=== PATIENT | male | born 1940 | race Caucasian/White ===

== ENCOUNTER 2017-04-29 07:46 | Outpatient (CLI) | payer MEDICARE, OTHER ==
--- NOTE | 2017-04-29 11:20 | Ultrasound Report ---
AORTA SCREEN: 04/29/2017 CLINICAL INDICATION: Screening, tobacco user. TECHNIQUE: Real-time sonographic vascular imaging was performed by the perianesthesia manager through the aorta utilizing both color-flow and Doppler spectral analysis. Multiple district sales representative static images were s aved for review. FINDINGS: The abdominal aorta is normal in caliber, measuring 2.6 cm proximally, 2.3 cm in the mid p ortion, and 1.6 cm distally. The iliacs are normal in caliber. No free fluid is present. IMPRESSION: NO EVIDENCE OF ABDOMINAL AORTIC ANEURYSM. JOB #: [id number] EXT JOB #:[id number]
== END 2017-04-29 07:47 | disposition home or self-care (01) ==
LOC: DI 07:46
PROVIDERS: ATTEND Internal Medicine
DX: Z13.6 Encounter for screening for cardiovascular disorders (principal); Z72.0 Tobacco use
CPT/HCPCS: 76706

== ENCOUNTER 2018-09-11 06:11 | Emergency (ER) | payer MEDICARE, OTHER ==
--- NOTE | 2018-09-11 06:16 | ED Physician Documentation ---
PD HPI MALE - Stated complaint Stated Complaint: MALE - History obtained from History obtained from: Patient - History of Present Illness Timing - onset: Yesterday Timing - details: Abrupt onset, Intermittant Pain level max: 6 Pain level now: 0 Associated symptoms: Back pain. No: Dysuria, Urinary frequency Similar symptoms before: Diagnosis (similar to previous renal colic) Recently seen: Not recently seen - Additional information Additional information: had right flank pain yesterday morning without apparent inciting event. Patient perceived that the pain was reminiscent of his previous renal colic, which he last had approximately 10 years ago. The pain subsided but returned this morning with nausea (no vomiting). 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 denies: Fever, Chills GI: reports: Nausea, Vomiting. denies: Abdominal Pain (right flank pain but no abdominal pain per se), Abdominal Swelling : denies: Dysuria, Frequency, Hematuria Skin: denies: Rash Musculoskeletal: reports: Back pain PD PAST MEDICAL HISTORY - Past Medical History Past Medical History: Yes : Kidney stones - Past Surgical History Past Surgical History: Yes General: Hiatal hernia repair - Living Situation Living Arrangement: reports: At home PD ED PE NORMAL - Vitals Vital signs reviewed: Yes - General General: Alert and oriented X 3, No acute distress, Well developed/nourished - Cardiac Cardiac: RRR, No murmur - Respiratory Respiratory: No respiratory distress, Clear bilaterally - Abdomen Abdomen: Soft, Non tender, Non distended - Back Back: No CVA TTP Results - Vitals Vitals: Vital Signs - 24 hr 09/11/18 09/11/18 06:17 06:26 Temperature 36.5 C Heart Rate 60 97 Respiratory 16 18 Rate Blood Pressure 169/87 H 169/87 H O2 Saturation 99 97 Oxygen O2 Source Room air - Labs Labs: Laboratory Tests 09/11/18 07:10 Urine Color YELLOW Urine Clarity CLEAR Urine pH 6.0 Ur Specific [place] 1.020 Urine Protein 100 H Urine Glucose (UA) NEGATIVE Urine Ketones NEGATIVE Urine Occult Blood MODERATE H Urine Nitrite NEGATIVE Urine Bilirubin NEGATIVE Urine Urobilinogen 0.2 (NORMAL) Ur Leukocyte Esterase NEGATIVE Urine RBC 0-5 Urine WBC 0-3 Ur Squamous Epith Cells RARE Squamous Urine Bacteria Rare Ur Microscopic Review INDICATED Urine Culture Comments NOT INDICATED - Rads (name of study) CT A/P Radiology: Prelim report reviewed, See rad report PD MEDICAL DECISION MAKING - ED course Complexity details: reviewed results, re-evaluated patient, considered differential, d/w patient Departure - Departure Disposition: 01 Home, Self Care Clinical Impression: Back pain, Flank pain Condition: Good Instructions: ED Flank Pain Uncertain Cause, ED Stone Renal Passed Follow-Up: Jas Menon MD [Primary Care Provider] - Within 1 week
[2018-09-11 06:24] VITALS: BP 169/87
--- NOTE | 2018-09-11 07:18 | CT Report ---
Reason: right flank pain Procedure Date: 09/11/2018 Accession Number: [id number] / [id number] Procedure: CT - Abdomen/Pelvis WO CPT Code: FULL RESULT: EXAM: CT ABDOMEN AND PELVIS (CT KUB) EXAM DATE: 09/11/2018 06:56 AM. CLINICAL HISTORY: Right flank pain. COMPARISONS: None. TECHNIQUE: Routine axial helical CT imaging was performed through the abdomen and pelvis without IV contrast. Reconstructions: Coronal and sagittal. In accordance with CT protocol optimization, one or more of the following dose reduction techniques were utilized for this exam: automated exposure control, adjustment of mA and/or KV based on patient size, or use of iterative reconstructive technique. FINDINGS: Lung Bases: There is mild bronchiectasis and scarring or atelectasis at the base of the left lower lobe. Right Kidney/Ureter: No stones, hydronephrosis, or hydroureter. No perinephric fat stranding. Left Kidney/Ureter: No stones, hydronephrosis, or hydroureter. No perinephric fat stranding. There are 2 exophytic cortical cyst near the superior pole of the left kidney measuring 5.6 x 5.0 cm and 4.1 x 3.9 cm, respectively (series 4, images 59 and 57). Other Solid Organs: Noncontrast images of the solid organs are grossly unremarkable. Gallbladder/Bile Ducts: Unremarkable. Peritoneal Cavity: No free fluid, free air or layne adenopathy. No evidence of bowel obstruction or abnormal colonic stool burden. The appendix is well visualized and normal. There is moderate diverticulosis of the sigmoid colon without evidence of acute diverticulitis. Pelvic Organs: No bladder stones or wall thickening. There is a calcified phlebolith in the right side of the pelvis located inferior to the distal right ureter (series 4 image 138, and series 6 image 69). Noncontrast images of the visualized pelvic organs are unremarkable. Vasculature: There is moderate atherosclerotic calcification of the abdominal aorta and bilateral common iliac arteries. No aneurysm or other significant abnormality. Other: There are small bilateral fat-containing inguinal hernias and a small fat-containing umbilical hernia. No acute osseous abnormality or bone lesion. There are moderate degenerative disk changes of the lumbar spine. There is mild right complex curvature of the lumbar spine. IMPRESSION: 1. No urinary tract stones or obstruction. 2. Moderate diverticulosis of the sigmoid colon without evidence of acute diverticulitis. 3. The appendix is well visualized and normal. RADIA
[2018-09-11 07:21] LABS: BILIRUBIN,URINE NEGATIVE (NEGATIVE); GLUCOSE, URINE (UA) NEGATIVE (NEGATIVE); KETONES,URINE (UA) NEGATIVE (NEGATIVE); LEUKOCYTE ESTERASE, URINE NEGATIVE (NEGATIVE); NITRITE,URINE NEGATIVE (NEGATIVE); OCCULT BLOOD,URINE MODERATE (NEGATIVE); PROTEIN,URINE 100 mg/dL (NEGATIVE); UROBILINOGEN,URINE 0.2 (NORMAL) E.U./dL (NORMAL)
[2018-09-11 07:25] LABS: CLARITY,URINE CLEAR (CLEAR)
[2018-09-11 07:29] LABS: BACTERIA,URINE Rare /HPF (None Seen); RBC,URINE 0-5 /HPF (0-5); SQUAMOUS EPITHELIAL CELL,UR RARE Squamous (<= Few)
== END 2018-09-11 08:16 | disposition home or self-care (01) ==
LOC: ED 06:11
DX: M54.9 Dorsalgia, unspecified (principal); R10.9 Unspecified abdominal pain
CPT/HCPCS: 74176; 81001; 81003; 87086; 99283

== ENCOUNTER 2018-11-20 11:17 | Outpatient (CLI) | payer MEDICARE, OTHER ==
--- NOTE | 2018-11-20 12:45 | XRAY Report ---
Reason: RT KNEE PAIN Procedure Date: 11/20/2018 Accession Number: [id number] / [id number] Procedure: XR - Knee 4 View RT CPT Code: FULL RESULT: EXAM: RIGHT KNEE RADIOGRAPHY EXAM DATE: 11/20/2018 11:26 AM. CLINICAL HISTORY: Right knee pain. COMPARISON: None. TECHNIQUE: 4 views. FINDINGS: Bones: On the external rotated view is a sharply angulated fragment in the region of the lateral tibial, possibly projectional finding. Joints: Mild narrowing of the bilateral weightbearing compartments. No significant osteophytosis. There is a small joint effusion. No subluxation. Soft Tissues: Normal. No soft tissue swelling. IMPRESSION: No osseous injury to the patella is detected. Potential avulsion fracture in the region of the lateral tibial spine, this finding is possibly projectional. RADIA
== END 2018-11-20 11:18 | disposition home or self-care (01) ==
LOC: DI 11:17
PROVIDERS: ATTEND Physician Assistant
DX: M25.561 Pain in right knee (principal)

== ENCOUNTER 2018-12-26 09:10 | Emergency (ER) | payer MEDICARE, OTHER ==
[2018-12-26] MEDS ORDERED: IOVERSOL 320 100 ML VIAL IVP ONE ×3 (09:11→13:53)
--- NOTE | 2018-12-26 09:31 | ED Physician Documentation ---
History of Present Illness - Stated complaint Stated Complaint: SPITTING BLOOD - Chief complaint Chief Complaint: Resp - History obtained from History obtained from: Patient - History of Present Illness Timing: Prior to arrival - Additonal information Additional information: Patient is a 78-year-old male with history of hypertension presenting with sudden onset hemoptysis earlier today. Patient denies hematemesis or hematochezia, as well as difficulty breathing, fever, chest pain, abdominal pain, or other urinary or stool symptoms. Patient is not on any a nticoagulation. Patient does note that he had recent lower leg swelling and pain several weeks ago that have mostly resolved with icing. Patient denies any current swelling or calf pain today. No other improving or worsening factors noted. Review of Systems Constitutional: denies: Fever Cardiac: denies: Chest pain / pressure Respiratory: reports: Cough. denies: Dyspnea GI: denies: Abdominal Pain, Nausea, Vomiting, Constipation : denies: Dysuria PD PAST MEDICAL HISTORY - Past Medical History Past Medical History: Yes Cardiovascular: Hypertension : Kidney stones - Past Surgical History Past Surgical History: Yes General: Hiatal hernia repair - Allergies Allergies/Adverse Reactions: Allergies Allergy/AdvReac Type Severity Reaction Status Date / Time No Known Drug Allergies Allergy Verified 12/26/18 09:20 - Social History Does the pt smoke?: No Smoking Status: Never smoker Does the pt drink ETOH?: Yes Does the pt have substance abuse?: No - Immunizations Immunizations are current?: No Immunizations: TDAP >10years/unknown - POLST Patient has POLST: No PD ED PE NORMAL - Vitals Vital signs reviewed: Yes - General General: Alert and oriented X 3, No acute distress, Well developed/nourished - HEENT HEENT: Atraumatic, Moist mucous membranes, Pharynx benign - Cardiac Cardiac: RRR, No murmur - Respiratory Respiratory: No respiratory distress, Clear bilaterally - Abdomen Abdomen: Soft, Non tender, Non distended - Derm Derm: Normal color, Warm and dry, No rash - Extremities Extremities: No deformity, No tenderness to palpate, No calf tenderness / cord. No: No edema (Trace pedal edema bilaterally) - Neuro Neuro: Alert and oriented X 3, No motor deficit, No sensory deficit - Psych Psych: Normal mood, Normal affect Results - Vitals Vitals: Vital Signs - 24 hr 12/26/18 12/26/18 12/26/18 09:18 09:20 10:02 Temperature 37.1 C 36.7 C Heart Rate 56 L 60 56 L Respiratory 18 17 17 Rate Blood Pressure 176/80 H 175/90 H 167/80 H O2 Saturation 99 99 100 12/26/18 12/26/18 14:00 15:08 Temperature 36.5 C Heart Rate 53 L 55 L Respiratory 21 12 Rate Blood Pressure 175/79 H 168/81 H O2 Saturation 99 99 Oxygen O2 Source Room air - EKG (time done) 0952 Rate: Rate (enter#) (68) Rhythm: Other (Irregular) Intervals: Prolonged QT - Labs Labs: Laboratory Tests 12/26/18 12/26/18 12/26/18 09:47 09:47 09:47 WBC 5.5 RBC 4.17 L Hgb 13.7 L Hct 39.7 L MCV 95.2 H MCH 32.9 H MCHC 34.5 RDW 12.6 Plt Count 269 MPV 9.0 Neut # (Auto) 2.9 Lymph # (Auto) 1.7 [place] # (Auto) 0.6 Eos # (Auto) 0.2 Baso # (Auto) 0.1 Absolute Nucleated RBC 0.00 Nucleated RBC % 0.0 PT 13.4 H INR 1.2 APTT 31.3 Sodium Potassium Chloride Carbon Dioxide Anion Gap BUN Creatinine Estimated GFR (MDRD) Glucose Calcium Total Bilirubin AST ALT Alkaline Phosphatase Troponin I Total Protein Albumin Globulin Albumin/Globulin Ratio Lipase Blood Type A POSITIVE Antibody Screen NEGATIVE 12/26/18 12/26/18 09:47 09:47 WBC RBC Hgb Hct MCV MCH MCHC RDW Plt Count MPV Neut # (Auto) Lymph # (Auto) [place] # (Auto) Eos # (Auto) Baso # (Auto) Absolute Nucleated RBC Nucleated RBC % PT INR APTT Sodium 141 Potassium 3.3 L Chloride 104 Carbon Dioxide 26 Anion Gap 11.0 BUN 17 Creatinine 1.0 Estimated GFR (MDRD) 73 L Glucose 99 Calcium 8.8 Total Bilirubin 1.0 AST 19 ALT 14 Alkaline Phosphatase 77 Troponin I < 0.04 Total Protein 7.1 Albumin 3.6 Globulin 3.5 Albumin/Globulin Ratio 1.0 Lipase 53 H Blood Type Antibody Screen PD MEDICAL DECISION MAKING - ED course Complexity details: reviewed results, re-evaluated patient, considered differential, d/w patient, d/w family, d/w database reporting consultant ED course: Patient presenting with bright red blood hemoptysis and no other associated symptoms.Within normal limits and patient not in risk of acute hemorrhage at this time. Patient started on IV fluids, but did not require other medications. Screening lab work obtained which returned relatively unremarkable including H&H at 13.7 and 39.7. Coags rather unremarkable. EKG does not show evidence of ischemia and troponin within normal limits. Have low suspicion for dissection, aneurysm,ACS, NM, unstable angina, but considered. Chest x-ray did not find evidence of acute pathology.Patient did have further episodes of hemoptysis, although if significantly small amount while in the ED. Do have concern for possible PE or other pulmonary mass or hemorrhage and obtain CT imaging to further evaluate. Do not find evidence of PE, pneumonia, pneumothorax, hemothorax, but noted nodule/mass concerning for neoplasm. Had extensive discussions with patient and family about results and recommendations, which can likely be done as an outpatient given patient's stability and lack of other associated symptoms. Contacted patient's PCP who feels comfortable with patient care for this issue, discharge home and will plan for close follow-up.Advised patient of discussion with PCP and patient and family also comfortable with discharge home with strict precautions and close follow-up. Departure - Departure Disposition: 01 Home, Self Care Clinical Impression: Hemoptysis Condition: Good Instructions: ED Hemoptysis Follow-Up: Jas Menon MD [Primary Care Provider] - Within 3 Days Comments: Please continue all home medications as prescribed. Please do not take any blood thinning medications such as aspirin unless absolutely needed. Please contact Dr. Menon's office later today to schedule outpatient follow-up appointment. Return to the ED sooner if experience more coughing of blood, vomiting blood, pooping blood, lightheaded, dizzy, passing out, chest pain, difficulty breathing, or other concerns.
[2018-12-26 09:59] LABS: BASOPHILS # (AUTO) 0.1 10^3/uL (0.0-0.1); BASOPHILS % (AUTO) 1.5 %; EOSINOPHILS # (AUTO) 0.2 10^3/uL (0.0-0.7); EOSINOPHILS % (AUTO) 2.7 %; HGB - HEMOGLOBIN 13.7 g/dL (14.0-18.0); LYMPHOCYTES # (AUTO) 1.7 10^3/uL (1.5-3.5); LYMPHOCYTES % (AUTO) 31.5 %; MEAN CORPUSCULAR HEMOGLOBIN 32.9 pg (27.0-31.0); MEAN CORPUSCULAR HGB CONC 34.5 g/dL (32.0-36.0); MEAN CORPUSCULAR VOLUME 95.2 fL (80.0-94.0); MONOCYTES # (AUTO) 0.6 10^3/uL (0.0-1.0); MONOCYTES % (AUTO) 11.2 %; NEUTROPHILS # (AUTO) 2.9 10^3/uL (1.5-6.6); NEUTROPHILS % (AUTO) 52.9 %; PLT - PLATELET COUNT 269 10^3/uL (130-450); RED BLOOD COUNT 4.17 10^6/uL (4.70-6.10); RED CELL DISTRIBUTION WIDTH 12.6 % (12.0-15.0); WHITE BLOOD COUNT 5.5 x10^3/uL (4.8-10.8)
[2018-12-26 10:10] LABS: INR 1.2 (0.8-1.2); PT - PROTHROMBIN TIME 13.4 secs (9.9-12.6)
[2018-12-26 10:13] LABS: ALBUMIN 3.6 g/dL (3.2-5.5); CALCIUM 8.8 mg/dL (8.5-10.3); TOTAL PROTEIN 7.1 g/dL (6.7-8.2)
[2018-12-26 10:17] LABS: PARTIAL THROMBOPLASTIN TIME 31.3 secs (24.9-33.3)
--- NOTE | 2018-12-26 10:40 | XRAY Report ---
Reason: cough Procedure Date: 12/26/2018 Accession Number: [id number] / [id number] Procedure: XR - Chest 2 View X-Ray CPT Code: 11216 FULL RESULT: EXAM: CHEST RADIOGRAPHY EXAM DATE: 12/26/2018 10:22 AM. CLINICAL HISTORY: Cough. COMPARISON: None. TECHNIQUE: 2 views. FINDINGS: Lungs/Pleura: The lungs are symmetrically aerated. No infiltrate, pleural effusion or pneumothorax. Mediastinum: Heart and mediastinal contours are unremarkable. Other: Mild degenerative changes in the thoracic spine. Surgical clips beneath hemidiaphragm. IMPRESSION: No acute process. RADIA
--- NOTE | 2018-12-26 13:13 | CT Report ---
Reason: New hemoptysis, no SOB or pain Procedure Date: 12/26/2018 Accession Number: [id number] / [id number] Procedure: CT - ANGIO CHEST W/WO CPT Code: FULL RESULT: EXAM: CT ANGIOGRAM CHEST EXAM DATE: 12/26/2018 11:52 AM. CLINICAL HISTORY: New hemoptysis, no SOB or pain. COMPARISON: None. TECHNIQUE: Routine helical imaging was performed through the chest in the pulmonary arterial phase. IV Contrast: 80 cc Optiray 320. Reconstructions: Sagittal, coronal, and 3D MIP. In accordance with CT protocol optimization, one or more of the following dose reduction techniques were utilized for this exam: automated exposure control, adjustment of mA and/or KV based on patient size, or use of iterative reconstructive technique. FINDINGS: Pulmonary Arteries: Diagnostic quality: Adequate through the segmental arteries. No evidence for acute or chronic pulmonary emboli. RV/LV is within normal limits. There is no interventricular septal bowing. There is trace reflux of contrast material in the IVC. Lungs/Pleura: Scattered peripheral fibrotic changes, right more than left, with bibasilar bronchiectasis, left worse than right. Localized pleural thickening in the right posterior apex with spiculated pleural-based nodular density measuring about 10.5 mm on series 5 image 25. No acute infiltrate, consolidation, effusion, or pneumothorax. Mediastinum: Normal overall heart size. No pericardial effusion. At least one vessel coronary artery calcification. No lymphadenopathy. Thoracic Aorta: Unremarkable. Upper Abdomen: The surgical clips in epigastrium. Left renal cysts. Otherwise unremarkable. Other: None. IMPRESSION: 1. Negative for pulmonary embolism at this time. Unremarkable aorta. 2. Spiculated nodule and right posterior apex, scarring versus neoplasm. Further evaluation with biopsy or PET scan is recommended, per Fleischner Society guidelines. 3. Chronic and incidental findings as noted, including mild bibasilar bronchiectasis. RADIA
[2018-12-26 15:58] VITALS: BP 165/74
== END 2018-12-26 15:57 | disposition home or self-care (01) ==
LOC: ED 09:10
DX: R04.2 Hemoptysis (principal); R91.1 Solitary pulmonary nodule; I45.81 Long QT syndrome; I10 Essential (primary) hypertension
CPT/HCPCS: 36415; 71046; 71275; 80053; 83690; 84484; 85025; 85610; 85730; 86850; 86900; 86901; 93005; 99284; Q9967

== ENCOUNTER 2018-12-27 13:14 | Outpatient (CLI) | payer MEDICARE, OTHER | END 2018-12-27 13:15 | disposition short-term general hospital (02) | LOC: EMS 13:14 | PROVIDERS: ATTEND Surgery | DX: R91.8 Other nonspecific abnormal finding of lung field (principal); R04.2 Hemoptysis | CPT/HCPCS: A0425; A0427 ==

== ENCOUNTER 2019-03-24 18:04 | Outpatient (CLI) | payer MEDICARE, OTHER ==
[2019-03-24 18:47] LABS: BASOPHILS # (AUTO) 0.1 10^3/uL (0.0-0.1); BASOPHILS % (AUTO) 0.8 %; EOSINOPHILS # (AUTO) 0.4 10^3/uL (0.0-0.7); EOSINOPHILS % (AUTO) 3.4 %; HGB - HEMOGLOBIN 13.5 g/dL (14.0-18.0); LYMPHOCYTES # (AUTO) 1.9 10^3/uL (1.5-3.5); LYMPHOCYTES % (AUTO) 15.4 %; MEAN CORPUSCULAR HEMOGLOBIN 33.2 pg (27.0-31.0); MEAN CORPUSCULAR HGB CONC 34.4 g/dL (32.0-36.0); MEAN CORPUSCULAR VOLUME 96.3 fL (80.0-94.0); MEAN PLATELET VOLUME 8.8 fL (7.4-11.4); MONOCYTES # (AUTO) 1.3 10^3/uL (0.0-1.0); MONOCYTES % (AUTO) 10.4 %; NEUTROPHILS # (AUTO) 8.4 10^3/uL (1.5-6.6); NEUTROPHILS % (AUTO) 69.3 %; PLT - PLATELET COUNT 234 10^3/uL (130-450); RED BLOOD COUNT 4.07 10^6/uL (4.70-6.10); RED CELL DISTRIBUTION WIDTH 12.7 % (12.0-15.0); WHITE BLOOD COUNT 12.1 x10^3/uL (4.8-10.8)
--- NOTE | 2019-03-25 10:33 | XRAY Report ---
Reason: SOB, HEMOPTYSIS Procedure Date: 03/24/2019 Accession Number: [id number] / [id number] Procedure: XR - Chest 2 View X-Ray CPT Code: 97742 FULL RESULT: EXAM: CHEST RADIOGRAPHY EXAM DATE: 03/24/2019 07:03 PM. CLINICAL HISTORY: Shortness of breath, hemoptysis. COMPARISON: CHEST 2 VIEW 12/26/2018 10:09 AM CHEST ANGIO 12/26/2018 11:43 AM. TECHNIQUE: 2 views. FINDINGS: Lungs/Pleura: Mild right hemithorax volume loss and right apical capping compatible with partial pneumonectomy. Mildly prominent interstitial markings bilaterally. No acute consolidations or pulmonary edema detected. Mediastinum: Heart and mediastinal contours are unremarkable. Other: None. IMPRESSION: Postsurgical changes on the right. No acute consolidations detected. If symptoms persist, follow-up CT would be suggested for further evaluation. RADIA
== END 2019-03-24 18:05 | disposition home or self-care (01) ==
LOC: LAB 18:04 → DI 18:04
PROVIDERS: ATTEND Physician Assistant
DX: R06.02 Shortness of breath (principal); R04.2 Hemoptysis
CPT/HCPCS: 36415; 71046; 85025; 85379

== ENCOUNTER 2019-07-23 06:51 | Day surgery (SDC) | payer MEDICARE, OTHER ==
[~2019-07-23 06:51] MED LIST: CYCLOPENTOLATE 1% OPHTH DROPS 2 ML ONE; KETOROLAC 0.45% OPHTH DROPS ONE; PHENYLEPHRINE 2.5% OPHTH 2 ML DROPS ONE; PROPARACAINE 0.5% OPHTH DROPS 15 ML ONE
[2019-07-23] MEDS ORDERED: MIDAZOLAM 2 MG/2 ML VIAL IVP ONE (06:52)
[2019-07-23] MEDS ORDERED: TRIAMCIN/MOXIFLOX OPHTHALMIC 0.6 ML VIAL IO ONE (06:55)
[2019-07-23] MEDS ORDERED: BSS/LIDOCAINE/EPINEPHRINE 1 ML SYRINGE ONE (06:55)
[2019-07-23] MEDS ORDERED: TIMOLOL 0.5% OPHTH DROPS ONE (06:55)
[2019-07-23] MEDS ORDERED: BRIMONIDINE 0.2% OPHTH DROPS 5 ML ONE (06:55)
[2019-07-23] MEDS ORDERED: VANCOMYCIN OPHTHALMI 8MG/0.8ML 8 MG/0.8 ML SYRINGE IO ONE (06:55)
[2019-07-23] MEDS ORDERED: LACTATED RINGERS 500 ML IV ONE (06:59)
[2019-07-23] MEDS ORDERED: CYCLOPENTOLATE 1% OPHTH DROPS 2 ML LEFTEYE ONE (07:16)
[2019-07-23] MEDS ORDERED: PROPARACAINE 0.5% OPHTH DROPS 15 ML LEFTEYE ONE ×2 (07:16→08:32)
[2019-07-23] MEDS ORDERED: KETOROLAC 0.45% OPHTH DROPS LEFTEYE ONE (07:16)
[2019-07-23] MEDS ORDERED: PHENYLEPHRINE 2.5% OPHTH 2 ML DROPS LEFTEYE ONE (07:22)
--- NOTE | 2019-07-23 08:01 | ANESTHESIA ---
Pre-Anesthesia VS, & Labs - Diagnosis left senile combined cataract - Procedure left cataract extraction with intraocular lens Vital Signs: Temp Pulse Resp BP Pulse Ox 36.5 C 48 L 15 151/69 H 99 07/23/19 07:08 07/23/19 07:08 07/23/19 07:08 07/23/19 07:08 07/23/19 07:08 Height 5 ft 11 in Weight (kg) 94 kg Body Mass Index 27.8 - NPO >8 hours Home Medications and Allergies Home Medications: Ambulatory Orders Amlodipine Besylate [Norvasc] 07/22/19 Citalopram [CeleXA] 07/22/19 Propranolol [Inderal] 07/22/19 traZODone [Desyrel] 07/22/19 Amlodipine Besylate [Norvasc] 07/22/19 Citalopram [CeleXA] 07/22/19 Propranolol [Inderal] 07/22/19 traZODone [Desyrel] 07/22/19 Allergies/Adverse Reactions: Allergies Allergy/AdvReac Type Severity Reaction Status Date / Time No Known Drug Allergies Allergy Verified 12/26/18 09:20 Anes History & Medical History - Anesthetic History Anesthesia Complications: reports: No previous complications - Medical History Cardiovascular: reports: Hypertension, Atrial fibrillation (history of) Pulmonary: reports: Other (s/p lobectomy right upper) Urinary: reports: Kidney stones Musculoskeletal: reports: None Endocrine/Autoimmune: reports: None Skin: reports: None Smoking Status: Never smoker - Surgical History General: Hiatal hernia repair Exam General: Alert Dental: WNL, Dentures full Upper, Dentures full Lower Mouth Opening: Greater than 4 Fingerbreadths Neck Mobility: Normal Mallampati classification: II Thyromental Distance: greater than 6 cm Respiratory: Lungs clear Cardiovascular: Regular rate, Normal S1, Normal S2 Mental/Cognitive Status: Alert/Oriented X3 Plan Anesthesia Type: MAC Consent for Procedure(s) Verified and Reviewed: Yes Code Status: Attempt Resuscitation ASA classification: 2-Mild systemic disease Is this case an emergency?: No
[2019-07-23] MEDS ORDERED: BRIMONIDINE 0.2% OPHTH DROPS 5 ML OPTH ONE (08:41)
[2019-07-23] MEDS ORDERED: EPINEPHrine 1 MG/ML AMP IVP ONE (08:41)
[2019-07-23] MEDS ORDERED: BSS/LIDOCAINE/EPINEPHRINE 1 ML SYRINGE IO ONE (08:42)
[2019-07-23] MEDS ORDERED: TIMOLOL 0.5% OPHTH DROPS OPTH ONE (08:42)
[2019-07-23] MEDS ORDERED: CHONDR SULF/HYALURONATE SYRINGE IO ONE (08:42)
[2019-07-23 09:25] VITALS: BP 139/69
--- NOTE | 2019-07-23 10:17 | OPERATIVE REPORT ---
DATE OF SERVICE: 07/23/2019 Physician: Indra Laura MD PREOPERATIVE DIAGNOSIS: Visually significant cataract, left eye. This was his first cataract surger y. POSTOPERATIVE DIAGNOSIS: Visually significant cataract, left eye. This was his first cataract surge ry. DESCRIPTION OF PROCEDURE: Phacoemulsification with posterior chamber intraocular lens implant, left eye. SURGEON: Indra Laura MD ANESTHESIA: Monitored anesthesia care. COMPLICATIONS: None. OPERATIVE INDICATIONS: This is a 78-year-old man with progressive vision loss in the left eye due to 2+ nuclear sclerotic, 1+ cortical, and 2+ posterior subcapsular cataract. Best corrected visual acu ity was 20/40, with glare to hand motion vision in the left eye. Indications for surgery are overall decrease in vision, difficulty reading, difficulty seeing words, closed caption or game scores on TV , difficulty driving at night or low light, difficulty driving at night because of headlights from ot her vehicles, difficulty with glare or bright lights in any situation, and decreased acuity with fire arms. He was consented at length concerning risks and benefits of cataract surgery, after which he e xpressed a desire to proceed with surgery. OPERATIVE PROCEDURE: The patient was taken into OR #3 and placed under monitored anesthesia care. A surgical timeout was conducted confirming correct patient, correct procedure, and correct surgical s ite. He was given topical anesthesia, and prepped and draped in the usual sterile fashion. The eye was entered at the 6 and 3 o'clock positions. Intracameral Shugarcaine was injected into the anterio r chamber, followed by Viscoat. A continuous-tear curvilinear capsulorrhexis was performed. The nuc leus was hydrodissected and phacoemulsified. Cortex was evacuated using automated infusion and aspir ation. Provisc was injected in the capsular bag, and a 20.0 diopter intraocular lens inserted in the bag. I and A was used to evacuate the viscoelastic materials. The eye was inflated to physiologic pressure using balanced salt solution and found to be watertight. Approximately 0.25 mL of a mixture of triamcinolone and moxifloxacin was injected transsclerally into the vitreous in the inferotempora l quadrant. An additional 0.55 mL of a mixture of triamcinolone, moxifloxacin and vancomycin was inj ected subconjunctivally in the superior quadrant for infection and inflammation prophylaxis. Wound i ntegrity was checked with Weck-Kiki sponges. The patient was taken from the operating room in good co ndition and given postoperative instructions. TD: 07/23/2019 09:02
== END 2019-07-23 06:52 | disposition home or self-care (01) ==
LOC: SDS 06:51
PROVIDERS: ATTEND Ophthalmology
PROC: 08RK3JZ Replacement of Left Lens with Synthetic Substitute, Percutaneous Approach (ICD-10-PCS; principal; 2019-07-23 08:30)
DX: H25.812 Combined forms of age-related cataract, left eye (principal); I10 Essential (primary) hypertension; Z90.2 Acquired absence of lung [part of]; Z85.118 Personal history of other malignant neoplasm of bronchus and lung; Z87.891 Personal history of nicotine dependence
CPT/HCPCS: 66984; A9270; J3490; V2632

== ENCOUNTER 2019-08-27 07:45 | Day surgery (SDC) | payer MEDICARE, OTHER ==
[~2019-08-27 07:45] MED LIST changes: +BRIMONIDINE 0.2% OPHTH DROPS 5 ML ONE; +BSS/LIDOCAINE/EPINEPHRINE 1 ML SYRINGE ONE; +TRIAMCIN/MOXIFLOX OPHTHALMIC 0.6 ML VIAL IO ONE; +VANCOMYCIN OPHTHALMI 8MG/0.8ML 8 MG/0.8 ML SYRINGE IO ONE; +timoloL maleate 0.5% OPHTH DROPS (10ML) ONE
[2019-08-27] MEDS ORDERED: LACTATED RINGERS 500 ML IV ONE (07:53)
[2019-08-27] MEDS ORDERED: KETOROLAC 0.45% OPHTH DROPS RIGHTEYE ONE (08:17)
[2019-08-27] MEDS ORDERED: CYCLOPENTOLATE 1% OPHTH DROPS 2 ML RIGHTEYE ONE (08:18)
[2019-08-27] MEDS ORDERED: PROPARACAINE 0.5% OPHTH DROPS 15 ML RIGHTEYE ONE ×2 (08:18→09:19)
[2019-08-27] MEDS ORDERED: PHENYLEPHRINE 2.5% OPHTH 2 ML DROPS RIGHTEYE ONE (08:18)
--- NOTE | 2019-08-27 08:25 | ANESTHESIA ---
Pre-Anesthesia VS, & Labs - Diagnosis Right senile combined cataract - Procedure Right phaco with IOL implant Vital Signs: Temp Pulse Resp BP Pulse Ox 36.8 C 57 L 15 126/64 99 08/27/19 08:01 08/27/19 08:01 08/27/19 08:01 08/27/19 08:01 08/27/19 08:01 Height 5 ft 11 in Weight (kg) 92 kg Body Mass Index 27.8 - NPO >8 hours Home Medications and Allergies Amlodipine Besylate [Norvasc] 5 mg PO DAILY 07/22/19 Citalopram [CeleXA] 40 mg PO DAILY 07/22/19 Propranolol [Inderal] 40 mg PO DAILY 07/22/19 traZODone [Desyrel] 25 mg PO DAILY 07/22/19 Allergies/Adverse Reactions: Allergies Allergy/AdvReac Type Severity Reaction Status Date / Time No Known Drug Allergies Allergy Verified 12/26/18 09:20 Anes History & Medical History - Anesthetic History Anesthesia Complications: reports: No previous complications Family history of Anesthesia Complications: Denies Family history of Malignant Hyperthermia: Denies - Medical History Cardiovascular: reports: Hypertension, Atrial fibrillation Pulmonary: reports: Other Gastrointestinal: reports: Hiatal hernia Urinary: reports: Kidney stones Neuro: reports: None Musculoskeletal: reports: None Endocrine/Autoimmune: reports: None Blood Disorders: reports: None Skin: reports: None Smoking Status: Former smoker Psychosocial: reports: No issues indicated - Surgical History General: Hiatal hernia repair Eyes Ears Nose Throat (EENT): Cataracts Exam General: Alert Dental: Dentures full Upper, Dentures full Lower Mouth Opening: Greater than 4 Fingerbreadths Neck Mobility: Normal Mallampati classification: I Thyromental Distance: greater than 6 cm Plan Anesthesia Type: MAC Consent for Procedure(s) Verified and Reviewed: Yes Code Status: Attempt Resuscitation ASA classification: 3-Severe systemic disease Is this case an emergency?: No
[2019-08-27] MEDS ORDERED: LIDOCAINE-MPF 2% 5 ML VIAL IM ONE (09:13)
[2019-08-27] MEDS ORDERED: PROPOFOL 200 MG/20 ML VIAL IVP ONE (09:13)
[2019-08-27] MEDS ORDERED: MIDAZOLAM 2 MG/2 ML VIAL IVP ONE (09:13)
[2019-08-27] MEDS ORDERED: BRIMONIDINE 0.2% OPHTH DROPS 5 ML OPTH ONE (09:20)
[2019-08-27] MEDS ORDERED: EPINEPHrine 1 MG/ML AMP IVP ONE (09:20)
[2019-08-27] MEDS ORDERED: CHONDR SULF/HYALURONATE SYRINGE IO ONE (09:20)
[2019-08-27] MEDS ORDERED: TIMOLOL 0.5% OPHTH DROPS OPTH ONE (09:20)
[2019-08-27] MEDS ORDERED: BSS/LIDOCAINE/EPINEPHRINE 1 ML SYRINGE IO ONE (09:20)
[2019-08-27] MEDS ORDERED: TRIAMCIN/MOXIFLOX OPHTHALMIC 0.6 ML VIAL IO ONE (09:37)
[2019-08-27] MEDS ORDERED: VANCOMYCIN OPHTHALMI 8MG/0.8ML 8 MG/0.8 ML SYRINGE IO ONE (09:38)
--- NOTE | 2019-08-27 09:52 | OPERATIVE REPORT ---
DATE OF SERVICE: 08/27/2019 Physician: Indra Laura MD PREOPERATIVE DIAGNOSIS: Visually significant cataract, right eye. Cataract surgery was performed on the left eye on 07/03/2019. POSTOPERATIVE DIAGNOSIS: Visually significant cataract, right eye. Cataract surgery was performed o n the left eye on 07/03/2019. PROCEDURE: Phacoemulsification with posterior chamber intraocular lens implant, right eye. SURGEON: Indra Laura MD ANESTHESIA: Monitored anesthesia care. COMPLICATIONS: None. OPERATIVE INDICATIONS: This is a 78-year-old man with progressive vision loss in the right eye due t o 2+ nuclear sclerotic, 1+ cortical and 1+ posterior subcapsular cataract. Best corrected visual acu ity was 20/50, with glare to 20/630. Indications for surgery were difficulty seeing words on a compu ter screen, difficulty reading, difficulty driving in low light or at night, difficulty driving at [facility] because of headlights from other vehicles, difficulty with glare or bright lights in any situatio n, and decreased acuity with firearms. He was consented at length concerning risks and benefits of c ataract surgery, after which he expressed a desire to proceed with surgery. OPERATIVE PROCEDURE: Patient was taken to OR #3 and placed under monitored anesthesia care. A surgi maricarmen timeout was conducted confirming correct patient, correct procedure, and correct surgical site. He was given topical anesthesia, and prepped and draped in the usual sterile fashion. The eye was en tered at the 12 and 9 o'clock positions. Intracameral Shugarcaine was injected into the anterior job mber, followed by Viscoat. A continuous-tear curvilinear capsulorrhexis was performed. The nucleus was hydrodissected and phacoemulsified. The cortex was evacuated using automated infusion and aspira tion. Provisc was injected in the capsular bag, and a 20.5 diopter intraocular lens was inserted int o the bag. Infusion and aspiration was used to evacuate the viscoelastic materials. The eye was inf lated to physiologic pressure using balanced salt solution and found to be watertight. Approximately 0.25 mL of a mixture of triamcinolone, moxifloxacin was injected transsclerally into the vitreous in the inferotemporal quadrant. An additional 0.55 mL of a mixture of triamcinolone, moxifloxacin and vancomycin was injected subconjunctivally in the superior quadrant for infection and inflammation pro phylaxis. Wound integrity was checked with Weck-Kiki sponges. Patient was taken from the operating r oom in good condition and given postoperative instructions. TD: 08/27/2019 09:44
[2019-08-27 09:58] VITALS: BP 106/59
== END 2019-08-27 07:46 | disposition home or self-care (01) ==
LOC: SDS 07:45
PROVIDERS: ATTEND Ophthalmology
PROC: 08RJ3JZ Replacement of Right Lens with Synthetic Substitute, Percutaneous Approach (ICD-10-PCS; principal; 2019-08-27 10:00)
DX: H25.811 Combined forms of age-related cataract, right eye (principal); Z98.42 Cataract extraction status, left eye; I10 Essential (primary) hypertension; I48.91 Unspecified atrial fibrillation; Z87.891 Personal history of nicotine dependence
CPT/HCPCS: 66984; A9270; J3490; V2632

== ENCOUNTER 2020-07-07 20:06 | Outpatient (CLI) | payer MEDICARE, OTHER ==
--- OUTSIDE RECORDS SUMMARY | 2020-07-13 01:22 | EXTERNAL MEDICAL SUMMARY RPT | Continuity of Care Document ---
:1940 Demographics Phone Unavailable Preferred Language Pakistani Marital Status Unknown Congregational Affiliation Unknown Race Unknown Ethnic Group Unknown Author Organization [facility] Address [address] [place] [address] Phone Care Team Providers Name Role Phone Menon Unavailable Unavailable Lemme Unavailable Unavailable Menon Unavailable Unavailable Problems date description facility Patient Education [facility] Finding [facility] Ex-smoker (finding) [facility] Allergies date description facility No Known Drug Allergies [facility] NO KNOWN ALLERGIES [facility] No Known Drug Allergies [facility] Medications date description facility 2020-07-09 00:00:00 Amlodipine 5 MG Oral Tablet [facility] 2020-07-09 00:00:00 Indomethacin 50 MG Oral Capsule [facility] 2020-07-09 00:00:00 Trazodone Hydrochloride 50 MG Oral Tab let [facility] 2020-07-10 00:00:00 Citalopram 20 MG Oral Tablet [facility] 2020-07-10 00:00:00 Citalopram 40 MG Oral Tablet [facility] Procedures date description facility 2020-07-09 00:00:00 [facility] date description facility 2020-07-09 00:00:00 [facility] date description facility 2020-07-09 00:00:00 [facility] date description facility 2020-07-09 00:00:00 General Physician [facility] date description facility 2020-07-09 00:00:00 [facility] Results Social History date description facility [id number] Ex-smoker ([facility]) [facility] Social History date description facility [id number] Ex-smoker ([facility]) [facility] date description facility [phone]
== END 2020-07-07 20:07 | disposition home or self-care (01) ==
LOC: COV 20:06
PROVIDERS: ATTEND Family Medicine
DX: U07.1 COVID-19 (principal)

== ENCOUNTER 2021-03-20 16:08 | Outpatient (CLI) | payer MEDICARE, OTHER ==
--- NOTE | 2021-03-21 08:15 | XRAY Report ---
PROCEDURE: Chest 2 View X-Ray INDICATIONS: PRODUCTIVE COUGH TECHNIQUE: 2 view(s) of the chest. COMPARISON: CXR 03/24/2019, 12/18/2018. CT chest angiogram 12/26/2018. FINDINGS: Surgical changes and devices: Surgical clips in the region of the diaphragmatic hiatus. Lungs and pleura: No pleural effusions or pneumothorax. No consolidation. Mildly prominent interstit ial markings bilaterally, similar dating back to 2018. Mild streaky retrocardiac opacity which likely corresponds to the mild bronchiectasis seen on remote CT. Mediastinum: Mediastinal contours are normal. Heart size is normal. Bones and chest wall: No suspicious bony abnormalities. Soft tissues appear unremarkable. IMPRESSION: No acute cardiopulmonary abnormality. Reviewed by: Nuno Hewitt MD on 03/21/2021 8:14 AM PDT Approved by: Nuno Hewitt MD on 03/21/2021 8:14 AM PDT Station ID: [id number]
== END 2021-03-20 16:10 ==
LOC: DI.N 16:08
PROVIDERS: ATTEND Nurse Practitioner
DX: R05 Cough (principal); Z20.822 Contact with and (suspected) exposure to COVID-19
CPT/HCPCS: 71046; U0004

== ENCOUNTER 2021-06-06 08:00 | Outpatient (CLI) | payer MEDICARE, OTHER | END 2021-06-06 23:59 | LOC: LAB.N 08:00 | PROVIDERS: ATTEND Physician Assistant Medical | DX: R51.9 Headache, unspecified (principal); Z20.822 Contact with and (suspected) exposure to COVID-19 ==